=== PATIENT | male | born 1965 | race Caucasian/White ===

== ENCOUNTER 2017-07-04 19:07 | Emergency (ER) | payer OTHER ==
[2017-07-04 19:23] VITALS: TEMP 97.9
[2017-07-04] MEDS ORDERED: NS 1,000 ML IV ONE ×3 (19:23→20:57)
[2017-07-04] MEDS ORDERED: ONDANSETRON 4 MG/2 ML VIAL IVP ONE (19:23)
--- NOTE | 2017-07-04 19:28 | EDPHY ---
H & P Time Seen by Provider: 07/04/17 19:18 HPI/ROS: CHIEF COMPLAINT: Vomiting and diarrhea HISTORY OF PRESENT ILLNESS: This is a 51-year-old male with a history of coronary artery disease status post stenting and prostate cancer status post prostatectomy. He presents with 4 hr of nausea, vomiting, diarrhea. He has had 5 bouts during that time span. He has been experiencing chills. He feels fatigued. He was well this morning and began with vomiting and diarrhea about 2 hr after his lunch. He does not think that he ate any spoiled food, but cannot be sure. No ill contacts. No recent travel. REVIEW OF SYSTEMS: A ten point review of systems was performed and is negative with the exception of the items mentioned in the HPI. Past medical history: 1. Prostate cancer status post prostatectomy in 2014 2. Coronary artery disease status post stenting of the LAD and RCA in March of 2016 3. Dyslipidemia 4. GERD Social history: He lives alone. No tobacco or alcohol use. General Appearance: Alert. Vital signs reviewed. Blood pressure 89/70 at triage. Heart rate 88. Afebrile. Eyes: Pupils equal and round, no conjunctival injection, no discharge. Anicteric. ENT, Mouth: Mucous membranes are moist, no oropharyngeal erythema or edema. Neck: No lymphadenopathy, supple. Respiratory: Lungs are clear to auscultation; no wheezes, rales, or rhonchi. Cardiovascular: Regular rate and rhythm; no murmur, rub, or gallop. Gastrointestinal: Abdomen is soft and nontender, no masses or organomegaly, bowel sounds normal. Skin: Warm and dry, no rashes on exposed skin, normal color. Back: Nontender to palpation over the thoracolumbar spine. No CVAT. Extremities: No lower extremity edema, no calf tenderness or swelling. Neurological: Alert and oriented. Moving all four extremities easily and equally. Psychiatric: Flat affect. - Medical/Surgical History Hx Asthma: No Hx Chronic Respiratory Disease: No Hx Diabetes: No Hx Cardiac Disease: No Hx Renal Disease: No Hx Cirrhosis: No Hx Alcoholism: No Hx HIV/AIDS: No Hx Splenectomy or Spleen Trauma: No Other PMH: prostate CA, kidney stones, bladder sx, rt foot reconstruction, rt hamstring repair, mono - Social History Smoking Status: Never smoked Constitutional: Initial Vital Signs Temperature (C) 36.6 C 07/04/17 19:19 Heart Rate 88 07/04/17 19:19 Respiratory Rate 20 07/04/17 19:19 Blood Pressure 89/70 L 07/04/17 19:19 O2 Sat (%) 97 07/04/17 19:19 O2 Delivery Mode Room Air O2 (L/minute) 0.5 Allergies/Adverse Reactions: No Known Allergies Allergy (Unverified 03/08/15 12:15) Home Medications: Medication Instructions Recorded Sildenafil Citrate [Revatio 20 MG 40 mg PO DAILY 04/06/16 (*)] Aspirin EC [Aspirin EC 325 mg (*)] 325 mg PO DAILY #30 tab 04/07/16 Atorvastatin Calcium [Lipitor 40 80 mg PO DAILY #90 tab 04/07/16 mg (*)] Medical Decision Making ED Course/Re-evaluation: Nausea, vomiting, and diarrhea with relative hypotension likely secondary to volume depletion. IV was started on his arrival and 1 L normal saline administered. He was given 4 mg IV Zofran. Re-evaluated at 8:20 p.m.. He has not had any vomiting or diarrhea. He has received 1 L of normal saline. Blood pressure is 101/67. Heart rate in the 80s. He has been resting comfortably. Abdomen remains soft and nontender. Re-evaluated at 8:50 p.m.. He continues to improve. He has not yet urinated after 2 L of IV fluid. Blood pressure is 110/60. He is complaining of some right shoulder pain that he thinks is due to lying on the shoulder. Will try Toradol 15 mg IV, as I am not sure that he could tolerate an oral medication yet. Abdomen is soft and nontender. Re-evaluated at 9 40 p.m.. He is sitting up in bed and has eaten ice chips without difficulty. I feel that he can safely return home at this point and he agrees. I think that this is gastroenteritis, likely viral. I do not suspect a surgical issue such as appendicitis. This is not a bowel obstruction. He does not have abdominal tenderness and I do not suspect cholecystitis or pancreatitis. Differential Diagnosis: I considered a differential diagnosis that includes but is not limited to gastroenteritis, food poisoning, bowel obstruction, appendicitis, cholecystitis , pancreatitis. - Data Points Medications Given: Discontinued Medications Sodium Chloride (Ns) 1,000 mls @ 0 mls/hr IV EDNOW ONE; Wide Open PRN Reason: Protocol Stop: 07/04/17 19:24 Last Admin: 07/04/17 19:28 Dose: 1,000 mls Sodium Chloride (Ns) 1,000 mls @ 0 mls/hr IV EDNOW ONE; Wide Open PRN Reason: Protocol Stop: 07/04/17 20:08 Last Admin: 07/04/17 20:11 Dose: 1,000 mls Sodium Chloride (Ns) 1,000 mls @ 0 mls/hr IV EDNOW ONE; Wide Open PRN Reason: Protocol Stop: 07/04/17 20:58 Last Admin: 07/04/17 21:02 Dose: 1,000 mls Ketorolac Tromethamine (Toradol) 15 mg IVP EDNOW ONE Stop: 07/04/17 20:58 Last Admin: 07/04/17 21:01 Dose: 15 mg Ondansetron HCl (Zofran) 4 mg IVP EDNOW ONE Stop: 07/04/17 19:24 Last Admin: 07/04/17 19:31 Dose: 4 mg Departure - Departure Disposition: Home, Routine, Self-Care Clinical Impression: Acute gastroenteritis Condition: Good Instructions: Gastroenteritis (ED) Referrals: ROSI TRACY [Primary Care Provider] - As per Instructions
[2017-07-04] MEDS ORDERED: KETOROLAC 15 MG/1 ML SDV IVP ONE (20:57)
[2017-07-04] MEDS ORDERED: KETOROLAC 15 MG/1 ML SDV ONE (20:57)
[2017-07-04 21:07] VITALS: RESP 14
[2017-07-04] MEDS ORDERED: ONDANSETRON 4MG PREPACK#2 BTL TAKEHOME ONE (21:44)
[2017-07-04 21:48] VITALS: BP 121/61; PULSE 81; O2SAT 93
== END 2017-07-04 21:55 | disposition home or self-care (01) ==
LOC: CED 19:07
DX: K52.9 Noninfective gastroenteritis and colitis, unspecified (principal); I25.10 Atherosclerotic heart disease of native coronary artery without angina pectoris; E86.9 Volume depletion, unspecified; Z79.82 Long term (current) use of aspirin; Z85.46 Personal history of malignant neoplasm of prostate; Z95.5 Presence of coronary angioplasty implant and graft
CPT/HCPCS: 96374; J1885; J2405